=== PATIENT | male | born 1965 | race Caucasian/White ===

== ENCOUNTER 2018-04-09 06:26 | Emergency (ER) | payer OTHER ==
[~2018-04-09] VITALS: Ht 182.9 cm; Wt 76.2 kg
--- NOTE | 2018-04-09 06:36 | NUR ---
Dr. Bledsoe at bedside for MSE.
[2018-04-09] MEDS ORDERED: HYDROMORPHONE 1 MG/1 ML DISP.SYRIN ONE ×2 (06:42→07:55)
[2018-04-09] MEDS ORDERED: ONDANSETRON 4 MG/2 ML VIAL ONE (06:42)
[2018-04-09] MEDS ORDERED: ONDANSETRON 4 MG/2 ML VIAL IV ONE (06:45)
[2018-04-09] MEDS ORDERED: IV NORMAL SALINE 500 ML BAG IV ONE (06:45)
[2018-04-09] MEDS ORDERED: HYDROMORPHONE 1 MG/1 ML DISP.SYRIN IV ONE ×2 (06:45→07:45)
[2018-04-09 07:00] LABS: BASOPHILS % (AUTO) 0.4 % (0.0-2.0); EOSINOPHILS # (AUTO) 0.3 K/uL (0.0-0.7); EOSINOPHILS % (AUTO) 3.8 % (0.0-7.0); HEMATOCRIT 46.6 % (36.7-47.1); HEMOGLOBIN 16.4 g/dL (12.5-16.3); LYMPHOCYTES # (AUTO) 2.1 K/uL (20.0-40.0); LYMPHOCYTES % (AUTO) 29.8 % (20.5-51.5); MEAN CORPUSCULAR HEMOGLOBIN 31.4 uug (23.8-33.4); MEAN CORPUSCULAR HGB CONC 35 g/dL (32.5-36.3); MEAN CORPUSCULAR VOLUME 89.5 fL (73.0-96.2); MONOCYTES # (AUTO) 0.6 K/uL (2.0-10.0); MONOCYTES % (AUTO) 8.9 % (0.0-11.0); NEUTROPHILS # (AUTO) 4.1 K/uL (1.8-8.9); NEUTROPHILS % (AUTO) 57.1 % (38.5-71.5); PLATELET COUNT (AUTO) 199 K/uL (152-348); WHITE BLOOD COUNT (AUTO) 7.2 K/uL (3.6-10.2)
[2018-04-09 07:02] LABS: POTASSIUM 3.7 mmol/L (3.5-5.1)
--- NOTE | 2018-04-09 07:03 | NUR ---
optical engineering technician. at bedside for transport to CT
--- NOTE | 2018-04-09 07:03 | NUR ---
Report given to Adams DILL.
--- NOTE | 2018-04-09 07:03 | NUR ---
Pt out of ER for CT.
[2018-04-09 07:14] LABS: BILIRUBIN,DIRECT 0.1 mg/dL (0.0-0.2); BILIRUBIN,TOTAL 0.4 mg/dL (0.2-1.0)
--- NOTE | 2018-04-09 07:15 | NUR ---
Pt back from CT, states pain is improving (now 11/27), NAD noted at this time.
--- NOTE | 2018-04-09 07:30 | NUR ---
NS 500ML BOLUS COMPLETE.
[2018-04-09] MEDS ORDERED: PANTOPRAZOLE SODIUM 40 MG VIAL ONE (07:34)
[2018-04-09 07:39] LABS: *BILIRUBIN,URIN NEGATIVE (NEGATIVE); *BLOOD, URINE 1+ (NEGATIVE); *CLARITY,URINE CLEAR (CLEAR); *COLOR,URINE YELLOW (YELLOW); *KETONES,URINE NEGATIVE (NEGATIVE); *PROTEIN,URINE NEGATIVE (NEGATIVE); *UROBILINOGEN,URINE 0.2 E.U./dl (NORMAL); LEUKOCYTE ESTERASE ,URINE NEGATIVE (NEGATIVE); NITRITE, URINE NEGATIVE (NEGATIVE); PH,URINE 6.5 (5.0-8.0); UGLUCOSE NEGATIVE (NEGATIVE)
[2018-04-09 07:42] LABS: BACTERIA,URINE FEW /HPF (NONE SEEN); RBC,URINE 0-3 /HPF (0-3); SQUAMOUS EPITHELIAL CELL,UR FEW /HPF (NONE SEEN); WBC,URINE 0-3 /HPF (0-3)
[2018-04-09] MEDS ORDERED: PANTOPRAZOLE SODIUM 40 MG VIAL IV ONE (07:45)
--- NOTE | 2018-04-09 08:00 | NUR ---
IV removed. Catheter intact and site benign. Pressure and 4x4 gauze applied to site. No bleeding noted.
--- NOTE | 2018-04-09 08:04 | NUR ---
Patient discharged to home in stable conditon with family. Written and verbal after care instructions given. Patient verbalizes understanding of instructions. Stressed follow up with pmd/GI.
== END 2018-04-09 08:05 | disposition home or self-care (01) ==
LOC: ER 06:29
DX: R10.13 Epigastric pain (principal); E03.9 Hypothyroidism, unspecified; Z88.8 Allergy status to other drugs, medicaments and biological substances
CPT/HCPCS: 36415; 74176; 80048; 80076; 81001; 83690; 84484; 85025; 93005; 96374; 96375; 96376; 99284; C9113; J1170 ×2; J2405; 70030-TC; A4663; J7040